=== PATIENT | female | born 1955 | race Caucasian/White ===

== ENCOUNTER 2025-02-10 12:04 | Emergency (ER) | payer MEDICARE, OTHER ==
[2025-02-10] MEDS ORDERED: Dexamethasone 10 MG/ML VIAL ONE (14:32)
[2025-02-10] MEDS ORDERED: HYDROcodone/Acetaminophen 5/325 mg Tablet ONE (14:32)
[2025-02-10] MEDS ORDERED: Amoxicillin/Potassium Clav 875 MG TAB ONE (14:32)
== END 2025-02-10 14:38 | disposition home or self-care (01) ==
LOC: ERS 12:04
DX: K04.01 Reversible pulpitis (principal)
CPT/HCPCS: 96372; 99282; J1100